=== PATIENT | male | born 1965 | race Caucasian/White ===

== ENCOUNTER 2018-01-17 01:33 | Emergency (ER) | payer MEDICARE ==
[~2018-01-17] VITALS: Ht 177.8 cm; Wt 81.7 kg
[~2018-01-17 01:33] MED LIST: DULO30 PO; ISOD40ER PO
[2018-01-17] MEDS ORDERED: METO25 PO (01:44)
== END 2018-01-17 02:09 | disposition home or self-care (01) ==
LOC: ER 01:33
DX: M54.5 Low back pain (principal); I10 Essential (primary) hypertension; F17.210 Nicotine dependence, cigarettes, uncomplicated; Z88.0 Allergy status to penicillin; Z79.899 Other long term (current) drug therapy
CPT/HCPCS: 96372; 99283; J1885

== ENCOUNTER 2018-01-17 02:21 | Emergency (ER) | payer MEDICARE ==
[~2018-01-17] VITALS: Ht 177.8 cm; Wt 81.7 kg
[~2018-01-17 02:21] MED LIST changes: +METO25 PO
== END 2018-01-17 02:32 | disposition home or self-care (01) ==
LOC: ER 02:21
DX: Z00.8 Encounter for other general examination (principal); F32.9 Major depressive disorder, single episode, unspecified; I10 Essential (primary) hypertension; F17.210 Nicotine dependence, cigarettes, uncomplicated; Z88.0 Allergy status to penicillin; Z79.899 Other long term (current) drug therapy
CPT/HCPCS: 99282